=== PATIENT | female | born 1965 ===

== ENCOUNTER 2018-03-13 09:23 | Emergency (ER) | payer MEDICARE, OTHER ==
[2018-03-13 09:23] VITALS: BMI 34.3
--- NOTE | 2018-03-13 09:45 | C.PDOC ---
History Of Present Illness 52 year old female presents to the ED for evaluation of left foot pain since yesterday. Patient states she was walking down the stairs, when she felt her foot cave in underneath her. She describes her pain as a constant, throbbing sensation that is 8/10 in severity. She states pain is non-radiating. Patient denies fever, chills, and falls at this time. Time Seen by Provider: 03/13/18 09:43 Chief Complaint (Nursing): Lower Extremity Problem/Injury History Per: Patient History/Exam Limitations: no limitations Onset/Duration Of Symptoms: Hrs Current Symptoms Are (Timing): Still Present Additional History Per: Patient - Ankle/Foot Description Of Injury: denies: Fell Past Medical History Reviewed: Historical Data, Nursing Documentation, Vital Signs Vital Signs: Last Vital Signs Temp 98.4 F 03/13/18 10:37 Pulse 66 03/13/18 10:37 Resp 20 03/13/18 10:37 BP 148/84 03/13/18 10:37 Pulse Ox 100 03/13/18 10:37 - Medical History PMH: Anemia, Asthma, HTN Surgical History: Appendectomy Denies: Pacemaker - [facility] Procedures INJECT/INFUSE NEC (09/19/04) Family History: States: Unknown Family Hx - Social History Hx Tobacco Use: No Hx Alcohol Use: No Hx Substance Use: No - Immunization History Hx Tetanus Toxoid Vaccination: No Hx Influenza Vaccination: No Hx Pneumococcal Vaccination: Yes Review Of Systems Constitutional: Negative for: Fever, Chills Musculoskeletal: Positive for: Foot Pain (left) Physical Exam - Physical Exam Appears: Non-toxic, No Acute Distress Skin: Normal Color, Warm, Dry, No Ecchymosis, No Other (erythema ) Extremity: Normal ROM, Tenderness (to dorsal aspect of left foot ), Capillary Refill (less than 2 seconds ), No Swelling Neurological/Psych: Oriented x3, Normal Speech, Normal Cognition, Normal Sensation Gait: Steady ED Course And Treatment O2 Sat by Pulse Oximetry: 97 (on RA) Pulse Ox Interpretation: Normal Medical Decision Making Medical Decision Making: Impression: 52 year old female with left foot pain Plan: * left foot XR * Motrin PO * Tylenol PO * reassess and disposition Progress: Left foot XR ordered and reviewed. Motrin PO and Tylenol PO administered. On re-examination, patient is resting comfortably, showing no signs of distress and reports an improvement in her pain. Patient is stable for discharge and is advised to f/u with her PMD within 1-2 days for further evaluation. Disposition Counseled Patient/Family Regarding: Studies Performed, Diagnosis - Disposition Disposition: HOME/ ROUTINE Disposition Time: 10:29 Condition: STABLE Instructions: Ankle Sprain (DC) Forms: Gen Discharge Inst [place], [facility] ([place]ran), Work Excuse - POA Present On Arrival: None - Clinical Impression Clinical Impression: Sprain of left foot - Scribe Statement The provider has reviewed the documentation as recorded by the Scribe (Catherine Michaud) Provider Attestation: All medical record entries made by the Scribe were at my direction and personally dictated by me. I have reviewed the chart and agree that the record accurately reflects my personal performance of the history, physical exam, medical decision making, and the department course for this patient. I have also personally directed, reviewed, and agree with the discharge instructions and disposition.
--- NOTE | 2018-03-13 10:12 | RAD ---
PROCEDURE: Left Foot Radiographs. HISTORY: twisted foot COMPARISON: None. FINDINGS: BONES: Normal. No fracture. JOINTS: 1st metatarsal joint space narrowing - minimal osteoarthrosis SOFT TISSUES: Atherosclerotic vascular calcifications present. . OTHER FINDINGS: None. IMPRESSION: No fracture. Minimal osteoarthrosis and 1st MTP joint
[2018-03-13 10:38] VITALS: BP 148/84; PULSE 66; RESP 20; TEMP 98.4
[2018-03-13 11:10] VITALS: O2SAT 97
== END 2018-03-13 10:42 | disposition home or self-care (01) ==
LOC: C.ER 09:23
DX: S93.602A Unspecified sprain of left foot, initial encounter (principal); X50.0XXA Overexertion from strenuous movement or load, initial encounter; Y92.9 Unspecified place or not applicable

== ENCOUNTER 2018-06-21 16:04 | Emergency (ER) | payer MEDICARE, OTHER ==
[2018-06-21 16:04] VITALS: BMI 34.9
[2018-06-21 16:24] VITALS: BP 135/86; PULSE 64; RESP 18; TEMP 98; O2SAT 100
[2018-06-21] MEDS ORDERED: Oxycodone/Acetaminophen 5/325 mg Tab PO STA (17:07)
[2018-06-21] MEDS ORDERED: MethylPREDNISolone 40 mg Vial IM STA (17:07)
[2018-06-21] MEDS ORDERED: Oxycodone/Acetaminophen 5/325 mg Tab ONE (17:14)
--- NOTE | 2018-06-21 17:26 | C.PDOC ---
History Of Present Illness 52 y/o female with PMHx significant for lumbar spine herniated disc , chronic lower back pain, currently in physical therapy, comes in for evaluation of left lower back pain radiating down to left buttock and thigh gradually developed for past 3 days. Patient reports her last PT session was yesterday and since then pain has worsened. Taking Tramadol and Tylenol at home without improvement. Admits to having similar symptoms in the past. Otherwise, pt denies fever, chills, headache, dizziness, neck pain, CP, abdominal pain, UTI symptoms, saddle anesthesia, incontinence, denies weakness, sensorivascular deficits to the left leg. Ambulate to Ed for evaluation, appears in pain. Time Seen by Provider: 06/21/18 16:47 Chief Complaint (Nursing): Pain, Chronic History Per: Patient History/Exam Limitations: no limitations Onset/Duration Of Symptoms: Days Current Symptoms Are (Timing): Worse Past Medical History Reviewed: Historical Data, Nursing Documentation, Vital Signs Vital Signs: Last Vital Signs Temp 98.0 F 06/21/18 16:20 Pulse 64 06/21/18 16:20 Resp 18 06/21/18 16:20 BP 135/86 06/21/18 16:20 Pulse Ox 100 06/21/18 17:28 - Medical History PMH: Anemia, Arthritis, Asthma, HTN Surgical History: Appendectomy, Tonsillectomy Denies: Pacemaker - [facility] Procedures INJECT/INFUSE NEC (09/19/04) Family History: States: Unknown Family Hx - Social History Hx Tobacco Use: No Hx Alcohol Use: No Hx Substance Use: No - Immunization History Hx Tetanus Toxoid Vaccination: No Hx Influenza Vaccination: No Hx Pneumococcal Vaccination: Yes Review Of Systems Except As Marked, All Systems Reviewed And Found Negative. Constitutional: Negative for: Fever, Chills Gastrointestinal: Negative for: Nausea, Vomiting, Abdominal Pain Genitourinary: Negative for: Dysuria, Frequency, Incontinence, Hematuria Musculoskeletal: Positive for: Back Pain Neurological: Negative for: Weakness, Numbness, Incoordination, Headache Physical Exam - Physical Exam Appears: Well, Non-toxic, No Acute Distress Skin: Normal Color, Warm, No Rash, No Ecchymosis Head: Normacephalic Eye(s): bilateral: PERRL Neck: Trachea Midline, No Midline Cervical Tenderness, No Paracervical Tenderness, Supple Gastrointestinal/Abdominal: Soft, No Tenderness, No Distention, No Guarding, No Rebound Back: No CVA Tenderness, No Vertebral Tenderness, Paraspinal Tenderness ( Diffuse left lumbar paraspinal tenderness extend down to left buttock ( sciatica ), no midline tenderness, no skin changes.), Straight Leg Raising (Lef tleg (+) at 20 degrees, Right leg (+) 40 degrees) Extremity: Normal ROM (of lower extremities), No Tenderness, No Calf Tenderness , No Deformity, No Swelling Pulses: Left Dorsalis Pedis: Normal, Right Dorsalis Pedis: Normal DTR: Knee (R): 2+, Knee (L): 2+ Neurological/Psych: Oriented x3, Normal Speech, Normal Motor, Normal Sensation, Normal Reflexes ED Course And Treatment O2 Sat by Pulse Oximetry: 100 (RA) Pulse Ox Interpretation: Normal Progress Note: Patient treated with PO Gabapentin, Percocet, and IM Solu- Medrol. On re-eval, pt reports moderate improvement in pian. Pt is afebrile, hemodynamicaly stable. Ambulatoy rin ED with stable gait. ENT: no acute findings. ABd: benign, (-) guarding, (-) rebound. back: (-) CVA tenderness. Neurologicaly intact. Pt has clinical findings c/w L-spine radiculopathy, chronic lower back pain with acute exacerbation. Pt advised on course of ds. ref. to F/U with PMD, Ortho, PM in 2-3 days for re-eval. return to ED if any worsening or new changes. Disposition Counseled Patient/Family Regarding: Diagnosis, Need For Followup, Rx Given - Disposition Referrals: Randy Newman MD [Medical Doctor] - Disposition: HOME/ ROUTINE Disposition Time: 17:45 Condition: STABLE Additional Instructions: Stop PT until re-evaluated by PMD, Orthopedist take pain medication as prescribed Follow up with PMD, Sp[facility] in 2-3 days for re- evaluation. return to ED if any worsening or new changes. Prescriptions: Gabapentin [Neurontin] 300 mg PO Q12 #14 cap Methocarbamol [Robaxin] 500 mg PO TID #14 tab Prednisone [Deltasone] 40 mg PO DAILY #6 tablet Instructions: Radiculopathy (DC) Forms: [employer] (Azeri) Print Language: SINHALA - Clinical Impression Clinical Impression: Lumbar radiculopathy, chronic, Chronic lower back pain - PA / [employer] / Resident Statement MD/DO has reviewed & agrees with the documentation as recorded. - Scribe Statement The provider has reviewed the documentation as recorded by the Scribe (Quiana Reilly) All medical record entries made by the Scribe were at my direction and personally dictated by me. I have reviewed the chart and agree that the record accurately reflects my personal performance of the history, physical exam, medical decision making, and the department course for this patient. I have also personally directed, reviewed, and agree with the discharge instructions and disposition.
== END 2018-06-21 17:56 | disposition home or self-care (01) ==
LOC: C.ER 16:04
DX: M54.16 Radiculopathy, lumbar region (principal); G89.29 Other chronic pain; M54.5 Low back pain
CPT/HCPCS: 96372; 99284; J2920